=== PATIENT | male | born 1945 | race Caucasian/White ===

== ENCOUNTER 2019-04-24 08:11 | Inpatient (IN) | payer MEDICARE, BC ==
[2019-04-16 12:28] LABS: BASOPHILS % (AUTO) 0.4 % (0-1); EOSINOPHILS # (AUTO) 0.1 X10'3 (0-0.9); EOSINOPHILS % (AUTO) 1.7 % (0-6); LYMPHOCYTES # (AUTO) 2.9 X10'3 (1.1-4.8); LYMPHOCYTES % (AUTO) 36.2 % (21-51); MEAN CORPUSCULAR HEMOGLOBIN 29.5 PG (27.0-31.0); MEAN CORPUSCULAR HGB CONC 34.1 g/dL (33.0-36.5); MEAN CORPUSCULAR VOLUME 86.4 FL (78-98); MEAN PLATELET VOLUME 8.5 FL (7.4-10.4); MONOCYTES # (AUTO) 0.5 X10'3 (0-0.9); MONOCYTES % (AUTO) 6.7 % (2-12); NEUTROPHILS # (AUTO) 4.4 X10'3 (1.8-7.7); PRE OP HEMATOCRIT 41.3 % (42.0-52.0); PRE OP HEMOGLOBIN 14.1 g/dL (14.0-17.9); PRE OP PLATELET COUNT 297 X10'3 (140-440); RED BLOOD COUNT 4.78 X10'6 (4.70-6.10); RED CELL DISTRIBUTION WIDTH 13.1 % (11.5-14.5)
[2019-04-16 12:39] LABS: ALBUMIN 3.9 G/DL (3.4-5.0); ALBUMIN/GLOBULIN RATIO 1.1 (1.1-1.5); ALKALINE PHOSPHATASE 54 IU/L (46-116); BLOOD UREA NITROGEN 30 MG/DL (7-18); BUN/CREATININE RATIO 21.7 (5.4-32.0); CALCIUM 8.8 MG/DL (8.5-10.1); CHLORIDE 103 MMOL/L (99-107); CREATININE 1.38 MG/DL (0.60-1.10); PRE OP ALT 37 U/L (30-65); PRE OP ANION GAP 8 (8-16); PRE OP AST 26 U/L (10-37); PRE OP BILIRUB, TOTAL 0.6 MG/DL (0.0-1.0); PRE OP GLUCOSE 84 MG/DL (70-104); PRE OP POTASSIUM 4.1 MMOL/L (3.4-5.1); PRE OP SODIUM 140 MMOL/L (135-145); TOTAL CARBON DIOXIDE 29.4 MMOL/L (24-32); TOTAL PROTEIN 7.5 G/DL (6.4-8.2); eGFR 50 ML/MIN
[2019-04-24] VITALS (14 sets, daily range): BP systolic 125–147; BP diastolic 63–84
[~2019-04-24] VITALS: Ht 182.9 cm; Wt 99.8 kg
[~2019-04-24 08:11] MED LIST: ACET-812 PO; ATOR10TA70 PO; CALC500T11 PO; ESOM20CA PO; FENO160T30 PO; FINA5TAB11 PO; FLO0.4C PO; LISI10TA4 PO; NAPR220T67 PO; PSYL3.4P5 PO
[2019-04-24] MEDS ORDERED: ringers solution, lacted 1,000 ML IV SCH ×2 (09:15→14:25)
[2019-04-24] MEDS ORDERED: ceFAZolin inj. 2,000 MG in dextrose 5%-water 50ml 50 ML IV ONE (09:15)
[2019-04-24] MEDS ORDERED: vancomycin inj 1,500 MG in normal saline 300ml IV soln IV ONE (09:15)
[2019-04-24] MEDS ORDERED: tranexamic acid inj. 1,000 MG in normal saline 100ml IV soln 100 ML IV ONE ×5 (09:15→18:30)
[2019-04-24] MEDS ORDERED: famotidine 20mg tablet PO ONE (09:15)
[2019-04-24] MEDS ORDERED: ketorolac trometh. 30mg/ml inj. ONE (11:49)
[2019-04-24] MEDS ORDERED: ROPIVAcaine 0.5% (5mg/ml) 30ml vial ONE ×2 (11:50→12:58)
[2019-04-24] MEDS ORDERED: propofol inj 20 ML IV ONE (12:58)
[2019-04-24] MEDS ORDERED: LIDOcaine 2% (20mg/ml) 5ml vial ONE (12:58)
[2019-04-24] MEDS ORDERED: MIDAZolam 5mg/5ml vial ONE (13:09)
[2019-04-24] MEDS ORDERED: fentaNYL/PF 50MCG/1 ML 2ML syringe ONE ×2 (13:09→14:04)
[2019-04-24] MEDS ORDERED: sevoflurane 250ml liquid IH ONE (13:10)
[2019-04-24] MEDS ORDERED: morphine 4 MG/ML inj SYRINge IV PRN (14:25)
[2019-04-24] MEDS ORDERED: ROPIVAcaine 0.2%/PF PAIN PUMP 550 ML IJ SCH (14:25)
[2019-04-24] MEDS ORDERED: HYDROmorphone inj. 0.5 MG/0.5 ML DISP.SYRIN IV PRN ×2 (14:25→15:35)
[2019-04-24] MEDS ORDERED: ondansetron/PF 4mg/2ml inj IV PRN ×2 (14:25→15:35)
[2019-04-24] MEDS ORDERED: ondansetron/PF 4mg/2ml inj ONE (14:54)
[2019-04-24] MEDS ORDERED: dexamethasone sod phosphate 4mg/ml inj. ONE (14:54)
--- NOTE | 2019-04-24 15:29 | NUR ---
Received from OR via ORTHO BED WITH AKMABLE , accompanied by Anesthesiologist NAMRATA and report given by Anesthesiolgist. PATIENT WITH 20G PIV INFILTRATED IV IN RIGHT FA. NEW IV BEING PLACED. LEFT ANTERIOR SHOULDLER DRESSING IS CDI. NERVE BLOCK CATHETER TO RIGHT SIDE OF NECK AND CONNECTED TO ON-Q BALL. + RADIAL PULSE PRESENT TO LEFT WRIST. LEFT UE IN SLING. SCDS DONNED AND NEW 22G PIV IN RIGHT UE VSS. 10L MASK ON WITH 96% SATURATIONS. Addendum: 04/24/19 at 1546 by Kevin Morse RN, RN Amended: Links added.
[2019-04-24] MEDS ORDERED: bisacodyl 10mg suppository rectal RC PRN (15:35)
[2019-04-24] MEDS ORDERED: oxyCODONE IR 5mg (immed. release) tablet PO PRN ×2 (15:35)
[2019-04-24] MEDS ORDERED: magnesium hydroxide 30ml (MOM) UD suspension PO PRN (15:35)
[2019-04-24] MEDS ORDERED: non-formulary drug (Acetaminophen (Tylenol Extra Strength) 2 TABLET) PO PRN (15:35)
[2019-04-24] MEDS ORDERED: HYDROmorphone 1 mg/ml syringe IV PRN (15:35)
[2019-04-24] MEDS ORDERED: calcium carbonate 500mg chew tablet PO PRN (15:35)
[2019-04-24] MEDS ORDERED: acetaminophen 325mg tablet PO PRN (15:35)
[2019-04-24] MEDS ORDERED: diphenhydrAMINE 25mg capsule PO PRN ×2 (15:35)
--- NOTE | 2019-04-24 16:29 | NUR ---
ALL CRITERIA FOR TRANSFER TO THE FLOOR HAS BEEN ACHIEVED. VSS. BED LOW, CALL LIGHT AND VS. SET IN PLACE. RN PRESENT TO ACCEPT CARE. PATIENT RESTING COMFORTABLY IN BED. BELONGINGS SENT WITH PATIENT. DRESSINGS CDI. GAVIOTA MACEDO PRESENT TO ACCEPT CARE OF PATIENT. PATIENT DENIES PAIN TO LEFT SHOULDER. PILLOW UNDER ULNAR NERVE ON LEFT. SLING ON, NO DRAINAGE PRESENT TO DRESSING. VSS. AND DAUGHTER AT BEDSIDE WITH PATIENT. Addendum: 04/24/19 at 1644 by Kevin Gutiérrez - GAVIOTA MEEK Amended: Links added.
[2019-04-24] MEDS: ceFAZolin 1GM/D5W- ADD-VANTAGE 50 ML IV SCH (16:44)
[2019-04-24] MEDS: potassium cl 20mEq in 1/2 NS 1,000 ML IV SCH (16:45)
--- NOTE | 2019-04-24 16:45 | NUR ---
ASSUMED CARE, RECEIVED REPORT FROM CRESENCIO MEEK, POST OP VS STARTED. PATIENT A&O X4, REPORTS 0/10 PAIN, FAMILY AT BEDSIDE, WILL CONTINUE TO MONITOR.
--- NOTE | 2019-04-24 18:03 | NUR ---
Problems reprioritized. Patient report given, questions answered & plan of care reviewed with VENITA MEEK.
[2019-04-24] MEDS ORDERED: vancomycin/NS 1 GM ADD-VANTAGE 250 ML IV SCH (20:00)
[2019-04-24] MEDS ORDERED: psyllium seed 3.4 gm packet PO SCH (21:00)
[2019-04-24] MEDS ORDERED: sennosides 8.6mg tablet PO SCH (21:00)
[2019-04-24] MEDS: acetaminophen 325mg tablet PO SCH (21:54)
[2019-04-25 00:30] VITALS: BP 144/63
[2019-04-25] MEDS: acetaminophen 325mg tablet PO SCH ×2 (01:17→08:21)
[2019-04-25] MEDS: ceFAZolin 1GM/D5W- ADD-VANTAGE 50 ML IV SCH (01:18)
[2019-04-25 02:00] VITALS: BP 139/73
[2019-04-25 04:30] VITALS: BP 144/63
[2019-04-25] MEDS: potassium cl 20mEq in 1/2 NS 1,000 ML IV SCH ×2 (04:56→07:34)
[2019-04-25 06:00] VITALS: BP 117/69
[2019-04-25 06:27] LABS: ANION GAP 10 (8-16); CHLORIDE 105 MMOL/L (99-107); SODIUM 137 MMOL/L (135-145); TOTAL CARBON DIOXIDE 22.3 MMOL/L (24-32)
[2019-04-25 06:34] LABS: BASOPHILS % (AUTO) 0.2 % (0-1); EOSINOPHILS % (AUTO) 0 % (0-6); HEMATOCRIT 37.4 % (42.0-52.0); HEMOGLOBIN 12.8 g/dl (14.0-17.9); LYMPHOCYTES # (AUTO) 1.4 X10'3 (1.1-4.8); LYMPHOCYTES % (AUTO) 10.6 % (21-51); MEAN CORPUSCULAR HEMOGLOBIN 29.3 PG (27.0-31.0); MEAN CORPUSCULAR HGB CONC 34.3 g/dL (33.0-36.5); MEAN CORPUSCULAR VOLUME 85.5 FL (78-98); MEAN PLATELET VOLUME 9.6 FL (7.4-10.4); MONOCYTES # (AUTO) 0.7 X10'3 (0-0.9); MONOCYTES % (AUTO) 5.5 % (2-12); NEUTROPHILS # (AUTO) 11.1 X10'3 (1.8-7.7); NEUTROPHILS % (AUTO) 83.7 % (42-75); PLATELET COUNT 242 X10'3 (140-440); RED BLOOD COUNT 4.37 X10'6 (4.70-6.10); RED CELL DISTRIBUTION WIDTH 13.1 % (11.5-14.5); WHITE BLOOD COUNT 13.3 X10'3 (4.5-11.0)
--- NOTE | 2019-04-25 06:56 | NUR ---
Patient in room ORTHO 4023. I have received report from Vianney MEEK and had the opportunity to ask questions and assume patient care.
[2019-04-25] MEDS ORDERED: pantoprazole 40mg Tablet.DR PO SCH (07:30)
[2019-04-25] MEDS ORDERED: tamsulosin 0.4mg capsule PO SCH (08:00)
[2019-04-25] MEDS ORDERED: atorvastatin 10mg tablet PO SCH (08:00)
[2019-04-25] MEDS ORDERED: lisinopril 10 MG tablet PO SCH (08:00)
[2019-04-25] MEDS ORDERED: finasteride 5mg tablet PO SCH (08:00)
[2019-04-25] MEDS ORDERED: aspirin 325mg tablet PO SCH (08:30)
[2019-04-25] MEDS ORDERED: fenofibrate 145mg tablet PO SCH (08:30)
[2019-04-25 10:00] VITALS: BP 122/65
--- NOTE | 2019-04-25 12:00 | NUR ---
Patient discharged to home with , IV taken out, on -q instructions were gone over with patient and , all belongings sent with patient, patient stable upon discharge
[2019-04-26] MEDS ORDERED: acetaminophen 325mg tablet PO PRN (15:35)
== END 2019-04-25 12:10 | disposition home or self-care (01) | DRG 483 ==
LOC: PAS IN 08:11 → EDSTATUS 10:45 → ORTHO 4S 17:00
PROVIDERS: ADMIT Orthopaedic Surgery; ATTEND Orthopaedic Surgery
PROC: 0RRK00Z Replacement of Left Shoulder Joint with Reverse Ball and Socket Synthetic Substitute, Open Approach (ICD-10-PCS; principal; 2019-04-24 13:10)
DX: M19.012 Primary osteoarthritis, left shoulder (principal); D62 Acute posthemorrhagic anemia; M25.512 Pain in left shoulder; E78.5 Hyperlipidemia, unspecified; I10 Essential (primary) hypertension; K21.9 Gastro-esophageal reflux disease without esophagitis; M65.9 Synovitis and tenosynovitis, unspecified; M75.100 Unspecified rotator cuff tear or rupture of unspecified shoulder, not specified as traumatic; N40.0 Benign prostatic hyperplasia without lower urinary tract symptoms
CPT/HCPCS: 36415; 80051; 80053; 82948; 85025; 87081; 93005; 97110; 97116; 97161; 97530; A4565; A4618; A7000; C1776; G0378; J0690; J1100; J1885; J2001; J2250; J2405; J2704; J2795; J3010; J3370; J3480; J7060; J7120